=== PATIENT | female | born 1995 | race Hispanic/Latino ===

== ENCOUNTER → 2024-05-29 13:30 | Outpatient (CLI) | payer MEDICAID, SELFPAY ==
[2024-05-29 22:46] LABS: Urine N gonorrhoeae NOT DETECTED
[2024-05-29 22:49] LABS: Urine Chlamydia DETECTED
== END ==
PROVIDERS: Visit Provider Obstetrics & Gynecology
DX: Z34.00 Encounter for supervision of normal first pregnancy, unspecified trimester (principal)
CPT/HCPCS: 87491; 87591

== ENCOUNTER → 2024-05-29 14:08 | Outpatient (CLI) | payer MEDICAID, SELFPAY ==
[2024-05-29 14:57] LABS: Add Manual Diff / Slide Review NO; Basophils Absolute Auto 0 /uL (0-100); Basophils Percent Auto 0.2 % (0-2); Eosinophils Absolute Auto 100 /uL (0-450); Eosinophils Percent Auto 1.3 % (2-4); Hematocrit 37.7 % (36-46); Hemoglobin 13.1 g/dL (12.0-16.0); Lymphocytes Absolute Auto 1600 /uL (1100-4500); Lymphocytes Percent Auto 21.5 % (25-40); Mean Corpuscular HGB Conc 34.8 % (30-36); Mean Corpuscular Hemoglobin 32.4 PG (26-34); Mean Corpuscular Volume 93.2 fL (80-100); Monocytes Absolute Auto 300 /uL (0-900); Neutrophils Absolute Auto 5300 /uL (1500-7000); Platelet Count 231 X10^3/uL (150-400); Red Blood Cell Count 4.05 X10^6/uL (4.0-5.2); Red Cell Distribution Width 13.6 % (11.6-14.8); White Blood Cell Count 7.3 X10^3/uL (4.5-11.0)
[2024-05-29 15:12] LABS: Natera Collection Specimen Collected
[2024-05-29 16:02] LABS: Hepatitis B Surface Antigen NEGATIVE s/c (NEGATIVE); Rubella Antibody IgG 29.1 IU/mL (>15)
[2024-05-29 16:16] LABS: HIV 1 & 2 Ab/Ag 4th Gen Combo NEGATIVE (NEGATIVE); Hep C Virus Ab w/Reflex Quant NEGATIVE s/c (NEGATIVE)
== END ==
LOC: LAB 14:10
PROVIDERS: Referring Provider Obstetrics & Gynecology; Visit Provider Obstetrics & Gynecology
DX: Z34.01 Encounter for supervision of normal first pregnancy, first trimester (principal)
CPT/HCPCS: 36415; 80055; 86787; 86803; 86850; 86900; 86901; 87086; 87389

== ENCOUNTER → 2024-06-27 11:41 | Outpatient (CLI) | payer MEDICAID, SELFPAY ==
--- NOTE | 2024-06-27 13:54 | DI.US.S_ITS ---
PROCEDURE: US OB >= 14 WEEKS FETUS INDICATIONS: anatomy scan OUTSIDE/PRIOR DATING DATA: Last menstrual period (LMP): Unknown. LMP-based estimated date of delivery (NICO): Unknown. First dating scan (date and location): 05/18/2024. Estimated date of delivery (NICO) from first dating scan: 11/19/2024. The calculations are made using the working NICO of 11/19/2024. TECHNIQUE: Real-time scanning was performed of the fetus, with image documentation and biometric measurements. Endovaginal scanning: No COMPARISON: [facility], , OB >= 14 WEEKS FETUS, 05/29/2024, 13:53. FINDINGS: General: A single living intrauterine gestation is present. Presentation: Vertex. Placenta: Placental position is anterior , without previa. Amniotic fluid index: 13.6 cm, normal range is 5-24 cm. Single deepest vertical pocket is 4.3 cm. heart rate: 158 beats per minute. Maternal cervical canal: 3.0 cm long. Normal lower limit is 2.5 cm. biometrics: Biparietal diameter: 4.6 cm, 20 week 0 day Head circumference: 17.3 cm, 19 week 6 day Abdominal circumference: 15.7 cm, 20 week 6 day Femur length: 2.9 cm, 19 week 0 day Clinically estimated gestational age: 19 week 2 day Composite gestational age from present scan: 20 week 0 day Estimated weight and percentile: 85 percentile Anatomic survey: Neuro: Ventricles are non-dilated at less than 10 mm. Cisterna magna is normal at 3-11 mm. Cerebellum is normal in size and morphology. Nuchal skin fold: Normal at less than 6 mm between 14-21 weeks gestational age. Face: Facial profile not well seen Spine: No evidence for spina bifida. Heart: 4-chambered heart is present, with normal ventricular outflow tracts. Diaphragm: Diaphragm is intact. Stomach: Left-sided stomach is present. Kidneys: No hydronephrosis. Normal is less than 5 mm in 2nd trimester, less than 7 mm in 3rd trimester. Cord: 3-vessel cord has orthotopic insertion. Bladder: Normal in size. Extremities: All 4 extremities identified. IMPRESSION: Single live intrauterine consistent with a 20 week 0 day gestation by current ultrasound. facial profile not well seen. Remainder of the anatomic survey is within normal limits Approved by: Javi Goel M.D. on 06/27/2024 at 18:39
[2024-06-30 20:11] LABS: AFP Value 51.4 ng/mL (.); Gest Age on Col Date 19.3 weeks (.); Insulin Dep Diabetes No (.); OSBR Risk 1IN 8933 (.); Results Report (.); Test Results *Screen Negative* (.)
[2024-07-02 10:20] LABS: PDF SEE SCANNED
== END ==
PROVIDERS: Referring Provider Obstetrics & Gynecology; Visit Provider Obstetrics & Gynecology
DX: Z34.02 Encounter for supervision of normal first pregnancy, second trimester (principal); Z3A.19 19 weeks gestation of pregnancy
CPT/HCPCS: 76811; 82105

== ENCOUNTER → 2024-07-25 15:16 | Outpatient (CLI) | payer MEDICAID, SELFPAY | LOC: LAB 15:17 | PROVIDERS: Visit Provider Obstetrics & Gynecology | DX: Z11.3 Encounter for screening for infections with a predominantly sexual mode of transmission (principal) | CPT/HCPCS: 87491; 87563; 87591 ==

== ENCOUNTER → 2024-08-22 10:10 | Outpatient (CLI) | payer MEDICAID, SELFPAY ==
[2024-08-22 11:58] LABS: Add Manual Diff / Slide Review NO; Basophils Absolute Auto 0 /uL (0-100); Basophils Percent Auto 0.1 % (0-2); Eosinophils Absolute Auto 100 /uL (0-450); Eosinophils Percent Auto 1.7 % (2-4); Hematocrit 37.1 % (36-46); Hemoglobin 12.8 g/dL (12.0-16.0); Lymphocytes Absolute Auto 1600 /uL (1100-4500); Lymphocytes Percent Auto 25.4 % (25-40); Mean Corpuscular HGB Conc 34.5 % (30-36); Mean Corpuscular Hemoglobin 33.4 PG (26-34); Mean Corpuscular Volume 96.8 fL (80-100); Monocytes Absolute Auto 300 /uL (0-900); Monocytes Percent Auto 5.4 % (3-14); Neutrophils Absolute Auto 4200 /uL (1500-7000); Neutrophils Percent Auto 67.4 % (50-75); Platelet Count 201 X10^3/uL (150-400); Red Blood Cell Count 3.84 X10^6/uL (4.0-5.2); Red Cell Distribution Width 13.3 % (11.6-14.8); White Blood Cell Count 6.3 X10^3/uL (4.5-11.0)
[2024-08-22 12:41] LABS: GTT (PREG) 1 Hour PP 50gm Dose 115 mg/dL (76-139)
== END ==
PROVIDERS: Obstetrics & Gynecology; Referring Provider Emergency Medicine; Visit Provider Emergency Medicine
DX: Z13.1 Encounter for screening for diabetes mellitus (principal); Z13.0 Encounter for screening for diseases of the blood and blood-forming organs and certain disorders involving the immune mechanism
CPT/HCPCS: 36415; 82950; 85025

== ENCOUNTER 2024-10-05 16:08 | Outpatient (CLI) | payer MEDICAID, SELFPAY ==
[2024-10-05 16:42] LABS: Add Manual Diff / Slide Review NO; Hematocrit 37.6 % (36-46); Hemoglobin 12.7 g/dL (12.0-16.0); Lymphocytes Absolute Auto 1400 /uL (1100-4500); Mean Corpuscular HGB Conc 33.9 % (30-36); Mean Corpuscular Hemoglobin 32.7 PG (26-34); Mean Corpuscular Volume 96.3 fL (80-100); Platelet Count 191 X10^3/uL (150-400)
[2024-10-05 16:56] LABS: Alanine Aminotransferase 17 IU/L (<35); Albumin 3.5 g/dL (3.5-5.0); Albumin Globulin Ratio 1.1 (1.0-2.8); Alkaline Phosphatase 134 U/L (38-126); Blood Urea Nitrogen 8 mg/dL (7-17); Calcium 9.1 mg/dL (8.4-10.2); Carbon Dioxide 20 mmol/L (22-32); Chloride 107 mmol/L (98-107); Estimated Glomerular Filt Rate > 60 mL/min (>60); Globulin 3.2 g/dL (1.7-4.1); Glucose 116 mg/dL (70-99); HEMOLYSIS < 15 (0-50); Potassium 3.8 mmol/L (3.4-5.1); Sodium 135 mmol/L (137-145); Total Protein 6.7 g/dL (6.3-8.2); Uric Acid 5.2 mg/dL (2.5-6.2)
[2024-10-05 17:40] LABS: Protein (Total) Urine Random 7 mg/dL (0-12); Protein Creatinine Ratio Urine 0.02 GRAM/24H
== END 2024-10-05 17:50 | disposition home or self-care (01) ==
LOC: LABOR 17:29 → OB 10-08 12:23
PROVIDERS: Referring Provider Obstetrics & Gynecology; Visit Provider Obstetrics & Gynecology
DX: O13.3 Gestational [pregnancy-induced] hypertension without significant proteinuria, third trimester (principal); Z3A.33 33 weeks gestation of pregnancy
CPT/HCPCS: 80053; 84550; 85025; G0378; G0379

== ENCOUNTER 2024-10-12 08:04 | Outpatient (CLI) | payer MEDICAID, SELFPAY ==
[2024-10-12 08:43] LABS: Add Manual Diff / Slide Review NO; Hematocrit 40.5 % (36-46); Hemoglobin 14.0 g/dL (12.0-16.0); Lymphocytes Absolute Auto 2100 /uL (1100-4500); Mean Corpuscular HGB Conc 34.6 % (30-36); Mean Corpuscular Hemoglobin 33.5 PG (26-34); Mean Corpuscular Volume 96.6 fL (80-100); Platelet Count 184 X10^3/uL (150-400)
[2024-10-12 08:54] LABS: Alanine Aminotransferase 19 IU/L (<35); Albumin 3.5 g/dL (3.5-5.0); Albumin Globulin Ratio 1.0 (1.0-2.8); Alkaline Phosphatase 152 U/L (38-126); Blood Urea Nitrogen 9 mg/dL (7-17); Calcium 8.8 mg/dL (8.4-10.2); Carbon Dioxide 20 mmol/L (22-32); Chloride 107 mmol/L (98-107); Estimated Glomerular Filt Rate > 60 mL/min (>60); Globulin 3.4 g/dL (1.7-4.1); Glucose 94 mg/dL (70-99); HEMOLYSIS < 15 (0-50); Potassium 3.8 mmol/L (3.4-5.1); Sodium 132 mmol/L (137-145); Total Protein 6.9 g/dL (6.3-8.2); Uric Acid 5.2 mg/dL (2.5-6.2)
--- NOTE | 2024-10-12 09:03 | P.TNLD_ITS ---
Visit Information Visit Information Date of evaluation: 10/12/24 Primary OB Provider: Lori iHlton On-call OB Provider: Elier Jones Reason for Evaluation: Yes non-stress test Comments/Additional reasons for admission: gestational HTN, labetalol 100mg BID Vital Signs Vital Signs: BP 122/75 PFSH Surgical History (Updated 05/17/24 @ 09:42 by Teena Bone RN) No pertinent past surgical history Family History (Updated 05/17/24 @ 09:43 by Teena Bone RN) Grandmother Hypertension Grandfather Osteoarthritis Social History marital status: unmarried,living together number of children: 0 household members: significant other lives independently: Yes caregiver/support person: No housing: other (mobile home) pets and animals: Yes (dog) education level: college (some college) occupational status: employed ([employer]) current occupational exposures/hazards: No special maxine needs: No travel history: recent (domestic only) seatbelt use: always helmet use: Yes water heater temp set < 120 deg: Yes working smoke detector in home: Yes fire extinguisher in home: Yes carbon monox detector in home: Yes firearms in home: No do you feel safe at home: Yes Tobacco: How many years used: 3 (not regularly) second hand exposure: No alcohol intake: former (occasionally when not ) substance use type: does not use during the past year weight has: increased > 10 lbs well-balanced diet: about half the time daily servings fruits/ve-4 caffeine: Yes (occasional soda or latte) Type(s) of exercise: walking Review of Systems Review of Systems ROS: Yes All systems reviewed with the patient and are negative except as otherwise documented Objective Labs 10/12/24 08:30 10/12/24 08:30 Labs: Laboratory Results - last 24 hr 10/12/24 08:30 WBC 7.7 RBC 4.19 Hgb 14.0 Hct 40.5 MCV 96.6 MCH 33.5 MCHC 34.6 RDW 14.0 Plt Count 184 Neut % (Auto) 64.9 Lymph % (Auto) 26.6 Yates % (Auto) 6.2 Eos % (Auto) 1.9 L Baso % (Auto) 0.4 Neut # (Auto) 5000 Lymph # (Auto) 2100 Yates # (Auto) 500 Eos # (Auto) 100 Baso # (Auto) 0 Sodium 132 L Potassium 3.8 Chloride 107 Carbon Dioxide 20 L BUN 9 Creatinine 0.51 L Estimated GFR > 60 BUN/Creatinine Ratio 17.6 Glucose 94 Uric Acid 5.2 Calcium 8.8 Total Bilirubin 0.8 AST 27 ALT 19 Alkaline Phosphatase 152 H Total Protein 6.9 Albumin 3.5 Globulin 3.4 Albumin/Globulin Ratio 1.0 Evaluation Evaluation Baseline heart rate: 140 Variability: Moderate (6-25) monitor accelerations: Present Monitor Decelerations: Absent Category of Tracing: Reactive Status: Category l Diagnosis, Plan/Disposition Plan/Disposition Plan: routine FM/PTL/PIH precautions repeat NST/weekly PIH labs as scheduled OB Disposition: home
[2024-10-12 09:13] LABS: Protein (Total) Urine Random 9 mg/dL (0-12); Protein Creatinine Ratio Urine 0.05 GRAM/24H
== END 2024-10-12 09:21 | disposition home or self-care (01) ==
LOC: LABOR 08:30 → OB 10-15 11:00
PROVIDERS: Referring Provider Obstetrics & Gynecology; Visit Provider Obstetrics & Gynecology
DX: O13.3 Gestational [pregnancy-induced] hypertension without significant proteinuria, third trimester (principal); Z3A.34 34 weeks gestation of pregnancy
CPT/HCPCS: 36415; 59025; 80053; 84550; 85025; G0378; G0379

== ENCOUNTER 2024-10-19 08:33 | Outpatient (CLI) | payer MEDICAID, SELFPAY ==
[2024-10-19 09:16] LABS: Add Manual Diff / Slide Review NO; Hematocrit 38.0 % (36-46); Hemoglobin 13.3 g/dL (12.0-16.0); Lymphocytes Absolute Auto 2000 /uL (1100-4500); Mean Corpuscular HGB Conc 35.0 % (30-36); Mean Corpuscular Hemoglobin 33.8 PG (26-34); Mean Corpuscular Volume 96.7 fL (80-100); Platelet Count 174 X10^3/uL (150-400)
[2024-10-19 09:19] LABS: Alanine Aminotransferase 22 IU/L (<35); Albumin 3.4 g/dL (3.5-5.0); Albumin Globulin Ratio 1.1 (1.0-2.8); Alkaline Phosphatase 153 U/L (38-126); Blood Urea Nitrogen 10 mg/dL (7-17); Calcium 8.6 mg/dL (8.4-10.2); Carbon Dioxide 18 mmol/L (22-32); Chloride 108 mmol/L (98-107); Estimated Glomerular Filt Rate > 60 mL/min (>60); Globulin 3.1 g/dL (1.7-4.1); Glucose 89 mg/dL (70-99); HEMOLYSIS < 15 (0-50); Potassium 3.9 mmol/L (3.4-5.1); Sodium 134 mmol/L (137-145); Total Protein 6.5 g/dL (6.3-8.2)
== END 2024-10-19 09:32 | disposition home or self-care (01) ==
LOC: LABOR 09:25 → OB 16:46
PROVIDERS: Referring Provider Obstetrics & Gynecology; Visit Provider Obstetrics & Gynecology
DX: O13.3 Gestational [pregnancy-induced] hypertension without significant proteinuria, third trimester (principal); Z3A.35 35 weeks gestation of pregnancy; Z11.3 Encounter for screening for infections with a predominantly sexual mode of transmission; Z36.85 Encounter for antenatal screening for Streptococcus B
CPT/HCPCS: 36415; 59025; 80053; 85025; 87491; 87563; 87591; 87653; G0378; G0379

== ENCOUNTER → 2024-10-19 08:40 | Outpatient (CLI) | payer MEDICAID, SELFPAY ==
[2024-10-20 12:38] LABS: Strep Grp B PCR NEG for Grp B Strep
== END ==
PROVIDERS: Visit Provider Obstetrics & Gynecology
DX: Z11.3 Encounter for screening for infections with a predominantly sexual mode of transmission (principal); Z36.85 Encounter for antenatal screening for Streptococcus B
CPT/HCPCS: 87491; 87563; 87591; 87653

== ENCOUNTER 2024-10-26 08:27 | Outpatient (CLI) | payer MEDICAID, SELFPAY ==
[2024-10-26 09:00] LABS: Add Manual Diff / Slide Review NO; Hematocrit 37.7 % (36-46); Hemoglobin 13.1 g/dL (12.0-16.0); Lymphocytes Absolute Auto 1800 /uL (1100-4500); Mean Corpuscular HGB Conc 34.8 % (30-36); Mean Corpuscular Hemoglobin 33.9 PG (26-34); Mean Corpuscular Volume 97.2 fL (80-100); Platelet Count 160 X10^3/uL (150-400)
[2024-10-26 09:11] LABS: Alanine Aminotransferase 22 IU/L (<35); Albumin 3.5 g/dL (3.5-5.0); Albumin Globulin Ratio 1.1 (1.0-2.8); Alkaline Phosphatase 163 U/L (38-126); Blood Urea Nitrogen 11 mg/dL (7-17); Calcium 9.0 mg/dL (8.4-10.2); Carbon Dioxide 17 mmol/L (22-32); Chloride 105 mmol/L (98-107); Estimated Glomerular Filt Rate > 60 mL/min (>60); Globulin 3.3 g/dL (1.7-4.1); Glucose 102 mg/dL (70-99); HEMOLYSIS 21 (0-50); Potassium 3.9 mmol/L (3.4-5.1); Sodium 132 mmol/L (137-145); Total Protein 6.8 g/dL (6.3-8.2); Uric Acid 6.1 mg/dL (2.5-6.2)
[2024-10-26 10:14] LABS: Protein (Total) Urine Random 15 mg/dL (0-12); Protein Creatinine Ratio Urine 0.31 GRAM/24H
== END 2024-10-26 10:15 | disposition home or self-care (01) ==
LOC: LABOR 10:02 → OB 12:18
PROVIDERS: Referring Provider Obstetrics & Gynecology; Visit Provider Obstetrics & Gynecology
DX: O13.3 Gestational [pregnancy-induced] hypertension without significant proteinuria, third trimester (principal); Z3A.36 36 weeks gestation of pregnancy
CPT/HCPCS: 36415; 59025; 80053; 84550; 85025; G0378; G0379

== ENCOUNTER → 2024-10-26 12:05 | Outpatient (CLI) | payer MEDICAID, SELFPAY ==
--- NOTE | 2024-10-26 12:06 | DI.US.S_ITS ---
PROCEDURE: US OB LIMITED INDICATIONS: Growth US/ BPP OUTSIDE/PRIOR DATING DATA: Last menstrual period (LMP): Unknown. LMP-based estimated date of delivery (NICO): Not applicable. First dating scan (date and location): 05/18/24. Estimated date of delivery (NICO) from first dating scan: 11/19/24. The calculations are made using the working NICO of 11/19/24. TECHNIQUE: Real-time scanning was performed of the fetus, with image documentation and biometric measurements. Biophysical profile was also obtained. Endovaginal scanning: No COMPARISON: None. FINDINGS: General: A single living intrauterine gestation is present. Presentation: Vertex. Placenta: Placental position is anterior , without previa. Amniotic fluid index: 9.9 cm, normal range is 5-24 cm. Single deepest vertical pocket is 3.9 cm. heart rate: 143 beats per minute. Maternal cervical canal: Closed and 3.0 cm long. Normal lower limit is 2.5 cm. biometrics: Biparietal diameter: 9.0 cm, 36 weeks three days Head circumference: 33.7 cm, 30 weeks five days Abdominal circumference: 33.1 cm, 36 weeks 0 days Femur length: 7.0 cm, 37 weeks 0 days Clinically estimated gestational age: 36 weeks four days Composite gestational age from present scan: 37 weeks 0 days Estimated weight and percentile: 3052 g, 62nd percentile Biophysical profile: 06/26 Tone: 0 points. Movement: Two points. Respiration: 0 points. Largest pocket of fluid: Two points. IMPRESSION: Single living intrauterine with estimated weight at the 62nd percentile. Composite gestational age in good agreement with the expected, three days ahead. Abnormal biophysical profile, 06/26. We strive to produce accurate, complete, and clear reports of imaging services. To assist us in improving patient care, this report was composed using standard report templates and voice recognition software. Therefore, it may contain abnormal punctuation, insertions and/or omissions. Occasional wrong-word or sound-alike substitutions may occur. Though we review the report and make efforts to correct it, we do recommend that the report be read carefully in proper context to recognize any text inaccuracies. Dictated by: Trena Bean M.D. on 10/26/2024 at 22:07 Approved by: Trena Bean M.D. on 10/26/2024 at 22:12
== END ==
LOC: US 12:05
PROVIDERS: Referring Provider Obstetrics & Gynecology; Visit Provider Obstetrics & Gynecology
DX: O13.3 Gestational [pregnancy-induced] hypertension without significant proteinuria, third trimester (principal); Z3A.35 35 weeks gestation of pregnancy
CPT/HCPCS: 36415; 59025; 76815; 76816; 80053; 84550; 85025